=== PATIENT | male | born 1940 | race Caucasian/White ===

== ENCOUNTER 2018-04-28 07:52 | Day surgery (SDC) | payer MEDICARE, OTHER ==
[~2018-04-28] VITALS: Ht 185.4 cm; Wt 96.4 kg
[~2018-04-28 07:52] MED LIST: BUPR150T6 PO; DUTA0.5C PO; ENAL5TAB PO; LORA-702 PO; MESA1.2T PO; MULT-717 PO; PRED10TA PO; SIMV40TA PO; TAMS-11 PO
[2018-04-28] MEDS ORDERED: LACTATED RINGERS 1,000 ML IV SCH (08:38)
[2018-04-28 08:45] VITALS: BP 131/86
[2018-04-28] MEDS ORDERED: EPINEPHRINE TOPICAL SOLN 1 MG/ML, 30ML ONE (08:46)
[2018-04-28] MEDS ORDERED: BACITRACIN OINT 500U/GM, 15 GM ONE (08:46)
[2018-04-28] MEDS ORDERED: FLUORESCEIN SODIUM 500 MG/5 ML ONE (08:46)
[2018-04-28] MEDS ORDERED: OXYMETAZOLINE NASAL SPRAY 0.05%, 15ML ONE (08:46)
[2018-04-28] MEDS ORDERED: LIDOCAINE 1%-EPI 1:100K, 30ML ONE (08:46)
[2018-04-28] MEDS ORDERED: FENTANYL PF 250 MCG/5ML ONE (09:30)
[2018-04-28] MEDS ORDERED: CEFAZOLIN 1,000 MG ONE (09:31)
[2018-04-28] MEDS ORDERED: PROPOFOL 10 MG/ML, 20ML ONE (09:31)
[2018-04-28] MEDS ORDERED: GLYCOPYRROLATE 0.2MG/1ML, 5ML ONE (09:31)
[2018-04-28] MEDS ORDERED: ROCURONIUM 10MG/ML,5ML ONE (09:31)
[2018-04-28] MEDS ORDERED: NEOSTIGMINE 1 MG/ML, 10ML ONE (09:31)
[2018-04-28] MEDS ORDERED: VASOPRESSIN 20 UNIT/ML, 1ML ONE (10:21)
[2018-04-28] MEDS ORDERED: PHENYLEPHRINE 10 MG/ML ONE (10:21)
[2018-04-28] MEDS ORDERED: DEXAMETHASONE 4 MG/ML, 5ML ONE (10:21)
[2018-04-28] MEDS ORDERED: FENTANYL PF 100 MCG/2ML IV PRN (10:30)
[2018-04-28] MEDS ORDERED: ONDANSETRON 2MG/ML, 2ML IV PRN (10:30)
[2018-04-28] MEDS ORDERED: OXYcodone 5 MG/5 ML ORAL.SOL UDC PO PRN (10:30)
[2018-04-28] MEDS ORDERED: MEPERIDINE/PF 25MG/0.5ML IVPush PRN (10:30)
[2018-04-28] MEDS ORDERED: hydrALAzine 20 MG/ML, 1ML IV PRN (10:30)
[2018-04-28] MEDS ORDERED: PROMETHAZINE 25 MG/ML, 1ML IM PRN ×2 (10:30)
[2018-04-28] MEDS ORDERED: PROMETHAZINE 25 MG SUPP PR PRN (10:30)
[2018-04-28] MEDS ORDERED: LABETALOL 5MG/ML, 20ML IV PRN (10:30)
[2018-04-28] MEDS ORDERED: ACETAMINOPHEN 325 MG TABLET PO PRN (10:30)
[2018-04-28] MEDS ORDERED: HYDROmorphone 2 MG/ML, 1ML IVPush PRN (10:30)
[2018-04-28] MEDS ORDERED: ONDANSETRON ODT 8 MG PO PRN (10:30)
[2018-04-28] MEDS ORDERED: PROMETHAZINE 12.5 MG SUPP PR PRN (10:30)
[2018-04-28] MEDS ORDERED: MORPHINE SULFATE 4 MG/ML, 1ML IVPush PRN (10:30)
[2018-04-28] MEDS ORDERED: PROMETHAZINE 25 MG/ML, 1ML IV PRN (10:30)
[2018-04-28] MEDS ORDERED: methylPREDNISolone SOD SUCC 125 MG/2 ML ONE (10:45)
[2018-04-28] MEDS ORDERED: HYDROCORTISONE 100 MG INJ. ONE (10:46)
[2018-04-28] MEDS ORDERED: OXYcodone 5 MG/5 ML ORAL.SOL UDC ONE (12:58)
[2018-04-28] MEDS ORDERED: ACETAMINOPHEN 650 MG/20.3 ML UDC ONE (12:58)
[2018-04-28] MEDS ORDERED: FENTANYL PF 100 MCG/2ML ONE (12:58)
== END 2018-04-28 16:00 | disposition home or self-care (01) ==
LOC: OUT 07:52
PROVIDERS: ATTEND Otolaryngology
DX: J32.0 Chronic maxillary sinusitis (principal); J32.2 Chronic ethmoidal sinusitis; J34.3 Hypertrophy of nasal turbinates; J33.8 Other polyp of sinus; I10 Essential (primary) hypertension; E78.5 Hyperlipidemia, unspecified; Z79.899 Other long term (current) drug therapy
CPT/HCPCS: 30140; 31240; 31253; 31259; 31267; 61782; 88304; J0690; J1100; J1720; J2370; J2704; J2710; J3010; J3490; J7120; J2930

== ENCOUNTER 2018-07-11 14:58 | Emergency (ER) | payer MEDICARE, OTHER ==
[~2018-07-11] VITALS: Ht 185.4 cm; Wt 97.7 kg
[2018-07-11 15:49] VITALS: BP 126/78
--- NOTE | 2018-07-11 15:51 | NUR ---
NO C-COLLAR PER PROVIDER ASSESSMENT, MARIA ESTHER REEVES
--- NOTE | 2018-07-11 17:21 | NUR ---
Patient/Caregiver given discharge instructions and they have confirmed that they understand the instructions. Patient ambulatory with steady gait.
== END 2018-07-11 17:22 | disposition home or self-care (01) ==
LOC: ED 16:36
DX: S06.320A Contusion and laceration of left cerebrum without loss of consciousness, initial encounter (principal); S06.310A Contusion and laceration of right cerebrum without loss of consciousness, initial encounter; I10 Essential (primary) hypertension; R20.2 Paresthesia of skin; W07.XXXA Fall from chair, initial encounter; Y93.89 Activity, other specified; Y92.098 Other place in other non-institutional residence as the place of occurrence of the external cause; Y99.8 Other external cause status
CPT/HCPCS: 70450; 72125; 99284

== ENCOUNTER → 2018-09-23 | Outpatient (CLI) | payer MEDICARE, OTHER | END | disposition home or self-care (01) | LOC: CFH 13:29 | PROVIDERS: ATTEND Internal Medicine Cardiovascular Disease | DX: I08.2 Rheumatic disorders of both aortic and tricuspid valves (principal); I10 Essential (primary) hypertension; E78.5 Hyperlipidemia, unspecified | CPT/HCPCS: 93306 ==

== ENCOUNTER 2019-06-15 05:33 | Day surgery (SDC) | payer MEDICARE, OTHER ==
[~2019-06-15] VITALS: Ht 185.4 cm; Wt 96.0 kg
[2019-06-15 06:02] VITALS: BP 152/92
[2019-06-15] MEDS ORDERED: LACTATED RINGERS 1,000 ML IV SCH (06:05)
[2019-06-15] MEDS ORDERED: EPINEPHRINE TOPICAL SOLN 1 MG/ML, 30ML ONE (06:40)
[2019-06-15] MEDS ORDERED: BACITRACIN OINT 500U/GM, 15 GM ONE (06:40)
[2019-06-15] MEDS ORDERED: LIDOCAINE 1%-EPI 1:100K, 20ML ONE (06:41)
[2019-06-15] MEDS ORDERED: FLUORESCEIN SODIUM 500 MG/5 ML ONE (06:41)
[2019-06-15] MEDS ORDERED: MIDAZOLAM 1 MG/ML, 2ML ONE (07:22)
[2019-06-15] MEDS ORDERED: PROPOFOL 50 ML ONE ×2 (07:22→08:48)
[2019-06-15] MEDS ORDERED: FENTANYL PF 250 MCG/5ML ONE (07:22)
[2019-06-15] MEDS ORDERED: ROCURONIUM 10MG/ML,5ML ONE (07:34)
[2019-06-15] MEDS ORDERED: PROPOFOL 10 MG/ML, 20ML ONE (07:58)
[2019-06-15] MEDS ORDERED: ONDANSETRON 2MG/ML, 2ML ONE (07:58)
[2019-06-15] MEDS ORDERED: CEFAZOLIN 1,000 MG ONE (07:58)
[2019-06-15] MEDS ORDERED: DEXAMETHASONE 4 MG/ML, 1ML ONE (07:58)
[2019-06-15] MEDS ORDERED: SUCCINYLCHOLINE 20 MG/ML, 10ML ONE (07:58)
[2019-06-15 08:04] LABS: ALANINE AMINOTRANSFERASE 23 U/L (12-78); ALBUMIN 3.3 g/dL (3.4-5.0); ANION GAP 9 mmol/L (5-15); CALCIUM 8.3 mg/dL (8.5-10.1); CHLORIDE 111 mmol/L (98-107); CREATININE 1.02 mg/dL (0.7-1.3)
[2019-06-15 08:07] LABS: ALKALINE PHOSPHATASE 116 U/L (45-117); BILIRUBIN,TOTAL 0.4 mg/dL (0.2-1.0); TOTAL PROTEIN 6.7 g/dL (6.4-8.2)
[2019-06-15] MEDS ORDERED: EPHEDRINE 50 MG/ML, 1ML IM PRN (08:30)
[2019-06-15] MEDS ORDERED: PROMETHAZINE 25 MG/ML, 1ML IV PRN (08:30)
[2019-06-15] MEDS ORDERED: DIPHENHYDRAMINE 50 MG/ML, 1ML IVPush PRN (08:30)
[2019-06-15] MEDS ORDERED: MEPERIDINE/PF 25MG/ML,1ML IVPush PRN (08:30)
[2019-06-15] MEDS ORDERED: OXYcodone 5 MG/5 ML ORAL.SOL UDC PO PRN (08:30)
[2019-06-15] MEDS ORDERED: MORPHINE SULFATE 4 MG/ML, 1ML IVPush PRN (08:30)
[2019-06-15] MEDS ORDERED: ONDANSETRON 2MG/ML, 2ML IV PRN (08:30)
[2019-06-15] MEDS ORDERED: DIAZEPAM 5 MG/ML, 2ML IVPush PRN (08:30)
[2019-06-15] MEDS ORDERED: hydrALAzine 20 MG/ML, 1ML IV PRN (08:30)
[2019-06-15] MEDS ORDERED: EPHEDRINE 50 MG/ML, 1ML IVPush PRN (08:30)
[2019-06-15] MEDS ORDERED: FENTANYL PF 100 MCG/2ML IV PRN (08:30)
[2019-06-15] MEDS ORDERED: MIDAZOLAM 1 MG/ML, 2ML IV PRN (08:30)
[2019-06-15] MEDS ORDERED: ONDANSETRON ODT 8 MG PO PRN (08:30)
[2019-06-15] MEDS ORDERED: ACETAMINOPHEN 325 MG TABLET PO PRN (08:30)
== END 2019-06-15 11:50 | disposition home or self-care (01) ==
LOC: OUT 05:33
PROVIDERS: ATTEND Otolaryngology
DX: J32.3 Chronic sphenoidal sinusitis (principal); J33.8 Other polyp of sinus; J32.0 Chronic maxillary sinusitis; J32.2 Chronic ethmoidal sinusitis; I10 Essential (primary) hypertension; Z79.899 Other long term (current) drug therapy
CPT/HCPCS: 31256; 31288; 36415; 80053; 88304; 88311; 93005; J0330; J0690; J1100; J2250; J2405; J2704; J3010; J3490; J7120